=== PATIENT | female | born 1970 | race Caucasian/White ===

== ENCOUNTER 2017-05-21 20:14 | Observation (INO) | payer SELFPAY ==
[~2017-05-21] VITALS: Ht 152.4 cm; Wt 65.0 kg
[2017-05-21 20:18] VITALS: BP 131/75; PULSE 75; RESP 15; TEMP 98.6; O2SAT 95
[2017-05-21] MEDS ORDERED: SODIUM CHLOR 0.9% 1000 ML INJ 1,000 ML IV SCH (21:02)
--- NOTE | 2017-05-21 21:13 | PD ---
HPI Chief Complaint: Abdominal Pain Time Seen by Provider: 20:56 Travel History International Travel<30 days: No Contact w/Intl Traveler<30days: No Traveled to known affect area: No History of Present Illness HPI 46-year-old female presents to the emergency department for evaluation of right lower quadrant abdominal pain that started 3 days ago. She reports nausea, but no vomiting. She Reports chills, but no documented fevers. She also reports constipation. She states her last bowel movement was this morning. She states that, however, she had pain in the right lower quadrant when she had her bowel movement. She also states the pain is worse with walking. She reports history of , no other abdominal surgeries. She is unsure if she could be . She has no chronic medical problems and takes no prescribed medications. She denies any abnormal vaginal discharge or new sexual partners. No pelvic pain she denies any urinary symptoms. No alleviating factors. Patient does state that she had this pain approximately 3 years ago when to a different hospital, but was never told what was wrong. PFSH Past Medical History Kidney Stones: Yes Tetanus Vaccination: Unknown ?: Not LMP: 04/23/2017 Past Surgical History Section: Yes Social History Alcohol Use: No Tobacco Use: No Substance Use: No Allergies-Medications (Allergen,Severity, Reaction): Coded Allergies: No Known Allergies (Unverified , 05/21/17) Reported Meds & Prescriptions Reported Meds & Active Scripts Active No Active Prescriptions or Reported Medications Review of Systems Except as stated in HPI: all other systems reviewed are Neg Physical Exam Narrative GENERAL: Well-nourished, well-developed female patient, afebrile. SKIN: Focused skin assessment warm/dry. HEAD: Normocephalic. Atraumatic. EYES: No scleral icterus. No injection or drainage. NECK: Supple, trachea midline. No JVD or lymphadenopathy. CARDIOVASCULAR: Regular rate and rhythm without murmurs, gallops, or rubs. RESPIRATORY: Breath sounds equal bilaterally. No accessory muscle use. Lungs sounds are clear to auscultation GASTROINTESTINAL: Abdomen soft and nondistended. Patient has tenderness over right lower quadrant over McBurney's point. She also has a positive Rovsing sign. MUSCULOSKELETAL: No cyanosis, or edema. BACK: Nontender without obvious deformity. No CVA tenderness. Data Data Last Documented VS Vital Signs Date Time Temp Pulse Resp B/P (MAP) Pulse Ox O2 Delivery O2 Flow Rate FiO2 05/21/17 21:49 100 Room Air 05/21/17 20:18 98.6 75 15 Orders Orders Complete Blood Count With Diff (05/21/17 21:02) Comprehensive Metabolic Panel (05/21/17 21:02) Lipase (05/21/17 21:02) Prothrombin Time / Inr (Pt) (05/21/17:02) Act Partial Throm Time (Ptt) (05/21/17 21:02) Urinalysis - C+S If Indicated (05/21/17 21:02) Ct Abd/Pel W Iv Contrast(Rout) (05/21/17 21:02) Iv Access Insert/Monitor (05/21/17 21:) Ecg Monitoring (05/21/17 21:) Oximetry (05/21/17 21:02) Morphine Inj (Morphine Inj) (05/21/17:15) Ondansetron Inj (Zofran Inj) (05/21/17 21:15) Sodium Chlor 0.9% 1000 Ml Inj (Ns 1000 M (05/21/17 21:02) Sodium Chloride 0.9% Flush (Ns Flush) (05/21/17:15) Ed Urine Pregnancytest Poc (05/21/17 21:02) Oral Contrast - Adult (05/21/17 21:18) Diatrizoate Liq ( Gastroview Liq) (05/21/17 22:05) Labs Laboratory Tests Test 05/21/17 21:50 White Blood Count 9.2 TH/MM3 Red Blood Count 3.88 MIL/MM3 Hemoglobin 11.9 GM/DL Hematocrit 35.7 % Mean Corpuscular Volume 92.0 FL Mean Corpuscular Hemoglobin 30.7 PG Mean Corpuscular Hemoglobin Concent 33.4 % Red Cell Distribution Width 13.2 % Platelet Count 193 TH/MM3 Mean Platelet Volume 10.3 FL Neutrophils (%) (Auto) 54.4 % Lymphocytes (%) (Auto) 37.0 % Monocytes (%) (Auto) 6.6 % Eosinophils (%) (Auto) 1.3 % Basophils (%) (Auto) 0.7 % Neutrophils # (Auto) 5.0 TH/MM3 Lymphocytes # (Auto) 3.4 TH/MM3 Monocytes # (Auto) 0.6 TH/MM3 Eosinophils # (Auto) 0.1 TH/MM3 Basophils # (Auto) 0.1 TH/MM3 CBC Comment DIFF FINAL Differential Comment Urine Color YELLOW Urine Turbidity CLEAR Urine pH 6.5 Urine Specific [place] 1.021 Urine Protein NEG mg/dL Urine Glucose (UA) NEG mg/dL Urine Ketones NEG mg/dL Urine Occult Blood NEG Urine Nitrite NEG Urine Bilirubin NEG Urine Urobilinogen LESS THAN 2.0 MG/DL Urine Leukocyte Esterase NEG Urine RBC LESS THAN 1 /hpf Urine WBC 1 /hpf Urine Squamous Epithelial Cells 3 /hpf Urine Mucus FEW /lpf Microscopic Urinalysis Comment CULT NOT INDICATED MDM Medical Decision Making Medical Screen Exam Complete: Yes Emergency Medical Condition: Yes Medical Record Reviewed: Yes Differential Diagnosis Appendicitis versus UTI versus pyelonephritis versus pancreatitis Narrative Course 46-year-old female presents to the emergency department for evaluation of right lower quadrant abdominal pain for 3 days. IV access established. CBC, CMP, lipase, UA, urine test, PTT, PT/INR ordered and pending. Patient is given normal saline 1 L IV bolus, morphine 4 mg IV, Zofran [address] the abdomen/pelvis with by mouth and IV contrast is ordered and pending. CBC is unremarkable. CMP, Lipase, Coags are pending. UA is negative for acute infection. UPT is negative. CT abdomen/pelvis is pending. My attending physician, , will resume care and disposition of patient. Scripts No Active Prescriptions or Reported Meds Lisa Flowers May 21, 2017 21:13
[2017-05-21] MEDS ORDERED: SODIUM CHLORIDE 0.9% FLUSH 10 ML FLUSH IV FLUSH PRN (21:15)
[2017-05-21] MEDS ORDERED: MORPHINE SULFATE 4 MG/ML INJ IV PUSH ONE (21:15)
[2017-05-21] MEDS ORDERED: ONDANSETRON HCL 4 MG/2 ML VIAL IVP ONE (21:15)
[2017-05-21 21:49] VITALS: O2SAT 100
[2017-05-21] MEDS ORDERED: DIATRIZOATE MEGLUM/DIATRIZOATE SOD 9 ML CUP ONE (22:05)
[2017-05-21 22:32] LABS: BASOPHIL # 0.1 TH/MM3 (0-0.2); BASOPHIL % 0.7 % (0.0-2.0); EOSINOPHIL # 0.1 TH/MM3 (0-0.4); EOSINOPHIL % 1.3 % (0.0-4.0); HEMATOCRIT 35.7 % (35.0-46.0); HEMO FLAGS DIFF FINAL; LYMPHOCYTE # 3.4 TH/MM3 (1.0-4.8); MEAN CORPUSCULAR HEMOGLOBIN 30.7 PG (27.0-34.0); MEAN CORPUSCULAR HGB CONC 33.4 % (32.0-36.0); MONO % 6.6 % (0.0-8.0); NEUT % 54.4 % (16.0-70.0); PLATELET COUNT 193 TH/MM3 (150-450); RED BLOOD COUNT 3.88 MIL/MM3 (4.00-5.30); RED CELL DISTRIBUTION WIDTH 13.2 % (11.6-17.2); WHITE BLOOD COUNT 9.2 TH/MM3 (4.0-11.0)
[2017-05-21 22:37] LABS: BLOOD, URINE NEG (NEG); COMMENT (UR) CULT NOT INDICATED; CULTURE IF INDICATED CULT NOT INDICATED; GLUCOSE,URINE NEG (NEG); KETONE, URINE NEG (NEG); MUCUS URINE FEW /lpf (OCC); NITRITE,URINE NEG (NEG); PH, URINE 6.5 (5.0-8.5); SQUAMOUS EPITHELIAL CELL URINE 3 /hpf (0-5); URINE COLOR YELLOW (YELLW/STRAW)
[2017-05-21 22:48] LABS: APTT (PATIENT) 26.9 SEC (24.3-30.1)
[2017-05-21 22:50] LABS: ANION GAP 8 MEQ/L (5-15); AST (GOT) 13 U/L (15-37); BICARBONATE 26.4 MEQ/L (21.0-32.0); BLOOD UREA NITROGEN 10 MG/DL (7-18); CHLORIDE 106 MEQ/L (98-107); GLOMERULAR FILTRATION RATE 117 ML/MIN (>89); POTASSIUM 3.9 MEQ/L (3.5-5.1); SODIUM (NA) 140 MEQ/L (136-145)
[2017-05-21 22:51] LABS: ALT (GPT) 19 U/L (10-53)
[2017-05-21 22:53] LABS: ALKALINE PHOSPHATASE 62 U/L (45-117); TOTAL BILIRUBIN ADULT 0.1 MG/DL (0.2-1.0)
[2017-05-21] MEDS ORDERED: IOHEXOL 350 MG/ML 10 ML VIAL (for RAD DIAG) IVCONTRAST ONE (23:50)
--- NOTE | 2017-05-22 00:10 | RADRPT ---
EXAM DATE/TIME: 05/21/2017 23:34 [facility] COMPARISON: No previous studies available for comparison. INDICATIONS : Left lower quadrant abdominal pain. IV CONTRAST: 100 cc Omnipaque 350 (iohexol) IV ORAL CONTRAST: Prescribed oral contrast ingested. RADIATION DOSE: 6.64 CTDIvol (mGy) MEDICAL HISTORY : None SURGICAL HISTORY : None. ENCOUNTER: Initial ACUITY: 3 days PAIN SCALE: 7/10 LOCATION: Left lower quadrant abdomen TECHNIQUE: Volumetric scanning of the abdomen and pelvis was performed. Using automated exposure control and ad justment of the mA and/or kV according to patient size, radiation dose was kept as low as reasonably achievable to obtain optimal diagnostic quality images. DICOM format image data is available electro nically for review and comparison. FINDINGS: LOWER LUNGS: The visualized lower lungs are clear. LIVER: There is diffuse decreased attenuation of the liver. There is a 0.6 cm hypodensity seen at the jacquard loom fixer ior lateral aspect of the right lobe of the liver. This is nonspecific. It is too small to further ch aracterize. There is no dilation of the biliary tree. No calcified gallstones. SPLEEN: Normal size without lesion. PANCREAS: Within normal limits. KIDNEYS: Normal in size and shape. There is no mass, stone or hydronephrosis. ADRENAL GLANDS: Within normal limits. VASCULAR: There is no aortic aneurysm. BOWEL/MESENTERY: There is questionable thickening versus lack of distention of the distal sigmoid colon. Significant bowel dilatation to suggest obstruction is not seen. ABDOMINAL WALL: Within normal limits. RETROPERITONEUM: There is no lymphadenopathy. BLADDER: No wall thickening or mass. REPRODUCTIVE: There is a 2.9 cm cyst in the left adnexa. INGUINAL: There is no lymphadenopathy or hernia. MUSCULOSKELETAL: Within normal limits for patient age. CONCLUSION: 1. 2.9 cm cyst in the left adnexa/ovary. 2. Lack of distention of the distal sigmoid colon. Some degree of thickening cannot be excluded. 3. Hepatic steatosis. There is a nonspecific 0.6 cm hypodensity in the right lobe. Statistically, thi s likely presents a cyst or hemangioma. Surya Hernandez MD on May 22, 2017 at 0:03 Board Certified Radiologist. This report was verified electronically.
[2017-05-22] MEDS ORDERED: MORPHINE SULFATE 4 MG/ML INJ IV PUSH ONE (01:15)
--- NOTE | 2017-05-22 01:21 | PD ---
Physical Exam Narrative Patient was seen by my medical research assistant and signed out to me. Data Data Last Documented VS Vital Signs Date Time Temp Pulse Resp B/P (MAP) Pulse Ox O2 Delivery O2 Flow Rate FiO2 05/21/17 21:49 100 Room Air 05/21/17 20:18 98.6 75 15 Orders Orders Complete Blood Count With Diff (05/21/17 21:02) Comprehensive Metabolic Panel (05/21/17 21:02) Lipase (05/21/17 21:02) Prothrombin Time / Inr (Pt) (05/21/17 21:02) Act Partial Throm Time (Ptt) (05/21/17 21:02) Urinalysis - C+S If Indicated (05/21/17 21:02) Ct Abd/Pel W Iv Contrast(Rout) (05/21/17 21:02) Iv Access Insert/Monitor (05/21/17 21:02) Ecg Monitoring (05/21/17 21:02) Oximetry (05/21/17 21:02) Morphine Inj (Morphine Inj) (05/21/17 21:15) Ondansetron Inj (Zofran Inj) (05/21/17 21:15) Sodium Chlor 0.9% 1000 Ml Inj (Ns 1000 M (05/21/17 21:02) Sodium Chloride 0.9% Flush (Ns Flush) (05/21/17 21:15) Ed Urine Pregnancytest Poc (05/21/17 21:02) Oral Contrast - Adult (05/21/17 21:18) Diatrizoate Liq ( Gastroview Liq) (05/21/17 22:05) Iohexol 350 Inj (Omnipaque 350 Inj) (05/21/17 23:50) Morphine Inj (Morphine Inj) (05/22/17 01:15) Us Pelvis Comp Infant Lead Teacher/Non-Preg (05/22/17 ) Labs Laboratory Tests Test 05/21/17 21:50 White Blood Count 9.2 TH/MM3 Red Blood Count 3.88 MIL/MM3 Hemoglobin 11.9 GM/DL Hematocrit 35.7 % Mean Corpuscular Volume 92.0 FL Mean Corpuscular Hemoglobin 30.7 PG Mean Corpuscular Hemoglobin Concent 33.4 % Red Cell Distribution Width 13.2 % Platelet Count 193 TH/MM3 Mean Platelet Volume 10.3 FL Neutrophils (%) (Auto) 54.4 % Lymphocytes (%) (Auto) 37.0 % Monocytes (%) (Auto) 6.6 % Eosinophils (%) (Auto) 1.3 % Basophils (%) (Auto) 0.7 % Neutrophils # (Auto) 5.0 TH/MM3 Lymphocytes # (Auto) 3.4 TH/MM3 Monocytes # (Auto) 0.6 TH/MM3 Eosinophils # (Auto) 0.1 TH/MM3 Basophils # (Auto) 0.1 TH/MM3 CBC Comment DIFF FINAL Differential Comment Prothrombin Time 11.0 SEC Prothromb Time International Ratio 1.0 RATIO Activated Partial Thromboplast Time 26.9 SEC Urine Color YELLOW Urine Turbidity CLEAR Urine pH 6.5 Urine Specific [place] 1.021 Urine Protein NEG mg/dL Urine Glucose (UA) NEG mg/dL Urine Ketones NEG mg/dL Urine Occult Blood NEG Urine Nitrite NEG Urine Bilirubin NEG Urine Urobilinogen LESS THAN 2.0 MG/DL Urine Leukocyte Esterase NEG Urine RBC LESS THAN 1 /hpf Urine WBC 1 /hpf Urine Squamous Epithelial Cells 3 /hpf Urine Mucus FEW /lpf Microscopic Urinalysis Comment CULT NOT INDICATED Blood Urea Nitrogen 10 MG/DL Creatinine 0.56 MG/DL Random Glucose 95 MG/DL Total Protein 6.7 GM/DL Albumin 3.4 GM/DL Calcium Level 9.0 MG/DL Alkaline Phosphatase 62 U/L Aspartate Amino Transf (AST/SGOT) 13 U/L Alanine Aminotransferase (ALT/SGPT) 19 U/L Total Bilirubin 0.1 MG/DL Sodium Level 140 MEQ/L Potassium Level 3.9 MEQ/L Chloride Level 106 MEQ/L Carbon Dioxide Level 26.4 MEQ/L Anion Gap 8 MEQ/L Estimat Glomerular Filtration Rate 117 ML/MIN Lipase 110 U/L [facility] Supervised Visit with JESSICA: Yes Interpretation(s) Last Impressions Abdomen/Pelvis CT 05/21/172101 Signed Impressions: Service Date/Time: Sunday, May 21, 2017 23:34 - CONCLUSION: 1. 2.9 cm cyst in the left adnexa/ovary. 2. Lack of distention of the distal sigmoid colon. Some degree of thickening cannot be excluded. 3. Hepatic steatosis. There is a nonspecific 0.6 cm hypodensity in the right lobe. Statistically, this likely presents a cyst or hemangioma. Surya Hernandez MD 1:21 AM. CBC within normal limit. CMP within normal limit. UA is negative. Narrative Course Morphine 4 mg IV 2. Zofran 4 mg IV given. Normal saline solution 1 25 cc an hour. Diagnosis Primary Impression: Intractable abdominal pain Admitting Information Admitting Physician Requests: Observation Scripts No Active Prescriptions or Reported Meds Kumar Srivastava MD May 22, 2017 01:21
[2017-05-22] MEDS ORDERED: SODIUM CHLOR 0.9% 1000 ML INJ 1,000 ML IV SCH ×2 (01:43→01:45)
[2017-05-22] MEDS ORDERED: ACETAMINOPHEN/HYDROcodone 325 MG/5 MG TAB PO PRN (01:45)
[2017-05-22] MEDS ORDERED: ACETAMINOPHEN 325 MG TAB PO PRN (01:45)
[2017-05-22] MEDS ORDERED: MORPHINE SULFATE 2 MG/ML INJ IV PUSH PRN (01:45)
[2017-05-22] MEDS ORDERED: SENNOSIDES 8.6 MG TAB PO PRN (01:45)
[2017-05-22] MEDS ORDERED: SODIUM CHLORIDE 0.9% FLUSH 10 ML FLUSH IV FLUSH PRN (01:45)
[2017-05-22] MEDS ORDERED: METOCLOPRAMIDE HCL 10 MG/2 ML VIAL IV PUSH PRN (01:45)
[2017-05-22] MEDS ORDERED: LACTULOSE SYRUP 20 GM/30 ML CUP PO PRN (01:45)
[2017-05-22] MEDS ORDERED: MAGNESIUM HYDROXIDE SUSP 30 ML CUP PO PRN (01:45)
[2017-05-22] MEDS ORDERED: BISACODYL 10 MG SUPP RECTAL PRN (01:45)
[2017-05-22] MEDS ORDERED: ONDANSETRON HCL 4 MG/2 ML VIAL IVP PRN (01:45)
--- NOTE | 2017-05-22 03:08 | RADRPT ---
EXAM DATE/TIME: 05/22/2017 02:39 [facility] COMPARISON: CT ABDOMEN & PELVIS W CONTRAST, May 21, 2017, 23:34. INDICATIONS : Pelvic pain. MEDICAL HISTORY : Renal calculi. SURGICAL HISTORY : section. ENCOUNTER: Initial ACUITY: 3 days PAIN SCORE: 8/10 LOCATION: Bilateral pelvis MEASUREMENTS: UTERUS: 6.9 x 6.1 x 4.4 cm ENDOMETRIAL STRIPE: 14 mm RIGHT OVARY: 3.3 x 2.9 x 2.4 cm LEFT OVARY: 3.8 x 2.9 x 3.3 cm FINDINGS: UTERUS: The endometrium measures 14 mm which is within normal limits for a menstruating female. The patient r eports her last menstrual period was 04/23/2017. RIGHT OVARY: Ovary contains no mass or significant cystic lesion. LEFT OVARY: There is a 2.7 x 2.9 x 2.6 cm simple cyst seen in the left ovary. MISCELLANEOUS: There is mild free fluid. CONCLUSION: 2.9 cm simple cyst of the left ovary. There is mild free fluid in the cul-de-sac. Surya Hernandez MD on May 22, 2017 at 3:04 Board Certified Radiologist. This report was verified electronically.
[2017-05-22 04:35] VITALS: BP 165/59; PULSE 56; RESP 18; TEMP 98.8; O2SAT 98
[2017-05-22 07:54] VITALS: BP 106/59; PULSE 55; RESP 16; TEMP 97.7; O2SAT 99
[2017-05-22] MEDS ORDERED: SODIUM CHLORIDE 0.9% FLUSH 10 ML FLUSH IV FLUSH SCH (09:00)
[2017-05-22] MEDS ORDERED: DOCUSATE SODIUM 50 MG/SENNA 8.6 MG TAB PO SCH (09:00)
--- NOTE | 2017-05-22 10:05 | HHI.HP ---
[facility] Service [facility] Primary Care Physician No Primary Care Physician Admission Diagnosis intractable abdominal pain Diagnoses: Chief Complaint: Abdominal pain Travel History International Travel<30 Days: No Contact w/Intl Traveler <30 Da: No Traveled to Known Affected Are: No History of Present Illness Written by Valdemar Chanel, acting as scribe for Dr. Conway on 05/22/17 at 10:04. 46-year-old female with no significant past medical history who presented for right-sided abdominal pain. The patient states that since Wednesday she had been having intermittent right-sided abdominal pain. She states it felt like a contraction. She states the pain was exacerbated with walking. The pain was not initially improved with the first dose of morphine in the ED, but improved after the second dose. At this time the pain has resolved. She had been having lightheadedness and vomiting yesterday, worsened with standing, and that has resolved as well. She's been ambulating here with no further symptoms. Previous episode like this 2 years ago that was worked up with no specific cause found. She denies any nausea, vomiting, chest pain, shortness breath, diarrhea, constipation. Her last menstrual period was 4 weeks ago, reports periods are regular and she is due to have one. 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 She does not have a PCP, but would like to establish with one. She is hoping to go home today. Of note, the patient speaks both Malay and Eritrean. The patient's daughter is at bedside who does assist with clarification with some translation. The patient was offered a wafer production lead worker, but she prefers to have her daughter translate for her. Review of Systems Except as stated in HPI: all other systems reviewed are Neg Past Family Social History Past Medical History None Past Surgical History Reported Medications [id number] Tylenol and ibuprofen as needed Allergies: Coded Allergies: No Known Allergies (Unverified , 05/21/17) Active Ordered Medications Current Medications Medications (Trade) Dose Ordered Sig/Pia Route Start Time Stop Time Status Last Admin Sodium Chloride 1,000 ml @ 100 mls/hr Q10H IV 05/22/17 01:43 (NS Flush) 2 ml UNSCH PRN IV FLUSH 05/22/17 01:45 (NS Flush) 2 ml BID IV FLUSH 05/22/17 09:00 05/22/17 08:22 (Zofran Inj) 4 mg Q6H PRN IVP 05/22/17 01:45 (Reglan Inj) 5 mg Q6H PRN IV PUSH 05/22/17 01:45 (Tylenol) 650 mg Q6H PRN PO 05/22/17 01:45 (Jordan 5-325 Mg) 1 tab Q4H PRN PO 05/22/17 01:45 (Norma-Colace) 1 tab BID PO 05/22/17 09:00 (Milk Of Magnesia Liq) 30 ml Q12H PRN PO 05/22/17 01:45 (Senokot) 17.2 mg Q12H PRN PO 05/22/17 01:45 (Dulcolax Supp) 10 mg DAILY PRN RECTAL 05/22/17 01:45 (Lactulose Liq) 30 ml DAILY PRN PO 05/22/17 01:45 (Morphine Inj) 4 mg Q3H PRN IV PUSH 05/22/17 01:45 Family History Mother and father had diabetes Social History Denies any alcohol, tobacco, or illegal drug use Physical Exam Vital Signs Vital Signs Date Time Temp Pulse Resp B/P (MAP) Pulse Ox O2 Delivery O2 Flow Rate FiO2 05/22/17 07:54 97.7 55 16 106/59 (75) 99 05/22/17 04:35 98.8 56 18 165/59 (94) 98 05/21/17 21:49 100 Room Air 05/21/17 20:18 98.6 75 15 131/75 (93) 95 Room Air Physical Exam GENERAL: This is a well-nourished, well-developed patient, in no apparent distress. SKIN: No rashes, ecchymoses or lesions. Cool and dry. HEAD: Atraumatic. Normocephalic. NECK: Trachea midline. No JVD or lymphadenopathy. Supple, nontender. CARDIOVASCULAR: Regular rate and rhythm without murmurs, gallops, or rubs. RESPIRATORY: Clear to auscultation. Breath sounds equal bilaterally. No wheezes , rales, or rhonchi. GASTROINTESTINAL: Abdomen soft, non-tender, nondistended. No hepato-splenomegaly , or palpable masses. No guarding. MUSCULOSKELETAL: Extremities without clubbing, cyanosis, or edema. No joint tenderness, effusion, or edema noted. NEUROLOGICAL: Awake and alert. Motor and sensory grossly within normal limits. Five out of 5 muscle strength in all muscle groups. Normal speech. Laboratory Laboratory Tests Test 05/21/17 21:50 White Blood Count 9.2 Red Blood Count 3.88 Hemoglobin 11.9 Hematocrit 35.7 Mean Corpuscular Volume 92.0 Mean Corpuscular Hemoglobin 30.7 Mean Corpuscular Hemoglobin Concent 33.4 Red Cell Distribution Width 13.2 Platelet Count 193 Mean Platelet Volume 10.3 Neutrophils (%) (Auto) 54.4 Lymphocytes (%) (Auto) 37.0 Monocytes (%) (Auto) 6.6 Eosinophils (%) (Auto) 1.3 Basophils (%) (Auto) 0.7 Neutrophils # (Auto) 5.0 Lymphocytes # (Auto) 3.4 Monocytes # (Auto) 0.6 Eosinophils # (Auto) 0.1 Basophils # (Auto) 0.1 CBC Comment DIFF FINAL Differential Comment Prothrombin Time 11.0 Prothromb Time International Ratio 1.0 Activated Partial Thromboplast Time 26.9 Urine Color YELLOW Urine Turbidity CLEAR Urine pH 6.5 Urine Specific [place] 1.021 Urine Protein NEG Urine Glucose (UA) NEG Urine Ketones NEG Urine Occult Blood NEG Urine Nitrite NEG Urine Bilirubin NEG Urine Urobilinogen LESS THAN 2.0 Urine Leukocyte Esterase NEG Urine RBC LESS THAN 1 Urine WBC 1 Urine Squamous Epithelial Cells 3 Urine Mucus FEW Microscopic Urinalysis Comment CULT NOT INDICATED Blood Urea Nitrogen 10 Creatinine 0.56 Random Glucose 95 Total Protein 6.7 Albumin 3.4 Calcium Level 9.0 Alkaline Phosphatase 62 Aspartate Amino Transf (AST/SGOT) 13 Alanine Aminotransferase (ALT/SGPT) 19 Total Bilirubin 0.1 Sodium Level 140 Potassium Level 3.9 Chloride Level 106 Carbon Dioxide Level 26.4 Anion Gap 8 Estimat Glomerular Filtration Rate 117 Lipase 110 Result Diagram: 05/21/17214905/21/172149 Imaging Last Impressions Pelvis Ultrasound 05/22/17 0000 Signed Impressions: Service Date/Time: Monday, May 22, 2017 02:39 - CONCLUSION: 2.9 cm simple cyst of the left ovary. There is mild free fluid in the cul-de-sac. Surya Hernandez MD Abdomen/Pelvis CT 05/21/172101 Signed Impressions: Service Date/Time: Sunday, May 21, 2017 23:34 - CONCLUSION: 1. 2.9 cm cyst in the left adnexa/ovary. 2. Lack of distention of the distal sigmoid colon. Some degree of thickening cannot be excluded. 3. Hepatic steatosis. There is a nonspecific 0.6 cm hypodensity in the right lobe. Statistically, this likely presents a cyst or hemangioma. MD Liseth Penni VTE Risk Assessment Caprini VTE Risk Assessment: No/Low Risk (score <= 1) Caprini Risk Assessment Model Point Value = 1 Point Value = 2 Point Value = 3 Point Value = 5 Age 41-60 Minor surgery BMI > 25 kg/m2 Swollen legs Varicose veins or History of unexplained or recurrent spontaneous Oral contraceptives or hormone replacement Sepsis (< 1 month) Serious lung disease, including pneumonia (< 1 month) Abnormal pulmonary function Acute myocardial infarction Congestive heart failure (< 1 month) History of inflammatory bowel disease Medical patient at bed rest Age 61-74 Arthroscopic surgery Major open surgery (> 45 min) Laparoscopic surgery (> 45 min) Malignancy Confined to bed (> 72 hours) Immobilizing plaster cast Central venous access Age >= 75 History of VTE Family history of VTE Factor V Leiden Prothrombin [id number] Lupus anticoagulant Anticardiolipin antibodies Elevated serum homocysteine Heparin-induced thrombocytopenia Other congenital or acquired thrombophilia Stroke (< 1 month) Elective arthroplasty Hip, pelvis, or leg fracture Acute spinal cord injury (< 1 month) Prophylaxis Regimen Total Risk Factor Score Risk Level Prophylaxis Regimen 0-1 Low Early ambulation 2 Moderate Order ONE of the following: *Sequential Compression Device (SCD) *Heparin 5000 units SQ BID 3-4 Higher Order ONE of the following medications: *Heparin 5000 units SQ TID *Enoxaparin/Lovenox 40 mg SQ daily (WT < 150 kg, CrCl > 30 mL/min) *Enoxaparin/Lovenox 30 mg SQ daily (WT < 150 kg, CrCl > 10-29 mL/min) *Enoxaparin/Lovenox 30 mg SQ BID (WT < 150 kg, CrCl > 30 mL/min) AND/OR *Sequential Compression Device (SCD) 5 or more Highest Order ONE of the following medications: *Heparin 5000 units SQ TID (Preferred with Epidurals) *Enoxaparin/Lovenox 40 mg SQ daily (WT < 150 kg, CrCl > 30 mL/min) *Enoxaparin/Lovenox 30 mg SQ daily (WT < 150 kg, CrCl > 10-29 mL/min) *Enoxaparin/Lovenox 30 mg SQ BID (WT < 150 kg, CrCl > 30 mL/min) AND *Sequential Compression Device (SCD) Assessment and Plan Assessment and Plan 46-year-old female with no significant past medical history who presented for right-sided abdominal pain Right-sided abdominal pain: Patient admitted for intractable pain, however pain and associated symptoms have resolved at this time after receiving medications in the ED. Although no specific etiology for symptoms identified, no concerning etiologies are apparent. Reviewed: Labs, UA, and vital signs are essentially unremarkable. Lipase within normal limits. Pelvic ultrasound with 2.9 cm simple cyst in the left ovary, possibly physiologic. Abdominal CT showed an ovarian cyst, lack of distention in the sigmoid colon, hepatic steatosis, nonspecific tiny 6 mm hypodensity in the right lobe of the liver. -Given supportive care overnight with IVF and antiemetics. -Jordan and IV morphine were available was needed, although the patient has not utilized this since admission -Patient made aware of all her imaging findings, all questions answered, and recommendation was given for outpatient PCP for follow-up for these. Disposition: The patient's symptoms have completely resolved at this time and she is asking to go home. As there have been no concerning findings with current workup, it's reasonable to discharge the patient today for outpatient follow-up with PCP for further care. Discussed Condition With Patient with daughter at bedside, RN Attending Statement This note was transcribed by colette [Valdemar Chanel]. I, Dr. Jose Conway personally performed the history, physical exam, and medical decision making; and confirmed the accuracy of the information in the transcribed note. Authenticated by Dr. Jose Conway on 05/22/17 at 22:00. Valdemar Chanel May 22, 2017 10:05 Jose Conway MD May 22, 2017 22:00
== END 2017-05-22 11:12 | disposition home or self-care (01) ==
LOC: NEPE 20:14 → NEDA 05-22 01:45 → NEPGCP 05-22 02:32
PROVIDERS: ADMIT Internal Medicine; ATTEND Internal Medicine
DX: R10.9 Unspecified abdominal pain (principal); R11.2 Nausea with vomiting, unspecified; R42 Dizziness and giddiness; R10.31 Right lower quadrant pain; R10.32 Left lower quadrant pain; R10.2 Pelvic and perineal pain; R68.83 Chills (without fever); N83.292 Other ovarian cyst, left side; K59.00 Constipation, unspecified; K76.0 Fatty (change of) liver, not elsewhere classified; Z87.442 Personal history of urinary calculi
CPT/HCPCS: 74177; 76856; 80053; 81001; 83690; 84703; 85025; 85610; 85730; 96361; 96374; 96375; 96376; G0378; J2270; J2405; J7030; Q9963; Q9967